=== PATIENT | female | born 1945 | race Caucasian/White ===

== ENCOUNTER 2016-12-25 10:34 | Emergency (ER) | payer OTHER ==
--- NOTE | 2016-12-25 11:06 | UCPHY ---
H & P Time Seen by Provider: 12/25/16 10:47 Patient Type: New HPI/ROS: CHIEF COMPLAINT: Cough HPI: The patient is a 71-year-old female with a history of breast cancer and diabetes. She complains of a cough productive of yellow sputum for approximately the last 2 days. Previous to this, she complained of a runny nose. She denies fever or body aches. She denies hemoptysis. She denies chest pain except when actively coughing. She states she has been under lot of stress recently because her just . REVIEW OF SYSTEMS: Aside from elements discussed in the HPI, a comprehensive 10-point review of systems was reviewed and is negative. PMH: Includes diabetes, breast cancer, no history of heart disease. SOCIAL HISTORY: Retired. . From [place]. FAMILY HISTORY: Reviewed, noncontributory PHYSICAL EXAM: General:Patient is alert, in no acute distress. She is well appearing. ENT:Eyes are normal to inspection. ENT inspection normal. Neck: Normal inspection. Full range of motion. Respiratory:No respiratory distress. Breath sounds normal bilaterally. Cardiovascular: Regular rate and rhythm. Strong peripheral pulses. Normal cap refill. Abdomen:The abdomen is nontender to palpation. There are no peritoneal signs. There are normal bowel sounds. Back: Normal to inspection. No tenderness to palpation. Skin: Normal color. No rash. Warm and dry. Extremities: Normal appearance. Full range of motion. Neuro: Oriented x3. Normal motor function. Normal sensory function. Smoking Status: Former smoker Constitutional: Initial Vital Signs Temperature (C) 36.9 C 12/25/16 10:48 Heart Rate 99 12/25/16 10:48 Respiratory Rate 16 12/25/16 10:48 Blood Pressure 141/92 H 12/25/16 10:48 O2 Sat (%) 92 12/25/16 10:48 O2 Delivery Mode Room Air Allergies/Adverse Reactions: No Known Allergies Allergy (Verified 12/25/16 10:50) Home Medications: Medication Instructions Recorded AZITHROMYCIN [Z-PACK] 250 mg PO DAILY #6 tab 12/25/16 Atacand 12/25/16 Crestor 12/25/16 Synthroid 12/25/16 MDM/Departure - MDM Diagnostics: Chest x-ray viewed and interpreted by myself is negative for pneumonia, showing only bronchitis. ED Course/Re-evaluation: This patient presents with cough in the absence of chest pain, hypoxia, fever. Her x-ray is negative for pneumonia. She has no pleuritic chest pain or hemoptysis to suggest PE. She is an appropriate candidate for outpatient therapy with azithromycin. We discussed strict return precautions. - Depart Disposition: Home, Routine, Self-Care Clinical Impression: Bronchitis Condition: Good Instructions: Acute Bronchitis (ED) Additional Instructions: Follow-up with your primary doctor within 72 hours. Return to the Emergency Department for fever, chest pain, shortness of breath, increasing pain or other worsening of condition. Prescriptions: AZITHROMYCIN [Z-PACK] 250 mg PO DAILY #6 tab Referrals: NONE *PRIMARY CARE P,. [Primary Care Provider] - As per Instructions Jim Corea MD [Medical Doctor] - As per Instructions - PQRS PQRS Measurement: 134: Depression screening and followup, PRIME MD-PHQ2 (12 years and older) Over the last 2 weeks, how often have you been bothered by any of the following problems? 1. Feeling down, depressed, or hopeless? 2. Little interest or pleasure in doing things? Patient answered no to both 1 and 2 130: Documentation of medications. Reviewed all patient medications, doses, route and frequency. 226: Do you smoke? No. 51: 18 years old and older with diagnosis of COPD, spirometry performance. Spirometry not performed; equipment not available. Patient has no history of COPD 52: 18 years old and older with COPD and symptoms of COPD or FEV1<60% predicted prescribed a B Agonist. Spirometry not performed; equipment not available.
[2016-12-25 11:38] VITALS: BP 136/87; PULSE 92; RESP 20; TEMP 98.1; O2SAT 96
== END 2016-12-25 11:36 | disposition home or self-care (01) ==
LOC: CED 10:34
DX: J40 Bronchitis, not specified as acute or chronic (principal); E11.9 Type 2 diabetes mellitus without complications; Z85.3 Personal history of malignant neoplasm of breast; Z87.891 Personal history of nicotine dependence
CPT/HCPCS: 71020; G0463; 99204-PO

== ENCOUNTER → 2017-04-09 | Outpatient (CLI) | payer OTHER | LOC: FIMAGING 07:54 | PROVIDERS: ATTEND Internal Medicine Hematology & Oncology | DX: Z12.31 Encounter for screening mammogram for malignant neoplasm of breast (principal); Z85.3 Personal history of malignant neoplasm of breast | CPT/HCPCS: G0202 ==

== ENCOUNTER → 2018-12-23 | Outpatient (CLI) | payer OTHER | LOC: FIMAGING 08:28 | PROVIDERS: ATTEND Internal Medicine | DX: R06.00 Dyspnea, unspecified (principal); M51.34 Other intervertebral disc degeneration, thoracic region | CPT/HCPCS: 82607-90 ==

== ENCOUNTER → 2019-01-07 | Outpatient (CLI) | payer OTHER | LOC: BHFA 14:45 | PROVIDERS: ATTEND Internal Medicine Cardiovascular Disease | DX: R06.00 Dyspnea, unspecified (principal); R05 Cough ==

== ENCOUNTER → 2019-01-24 | Outpatient (CLI) | payer OTHER | LOC: BHLMT 15:16 | PROVIDERS: ATTEND Internal Medicine Cardiovascular Disease | DX: R06.02 Shortness of breath (principal); R53.83 Other fatigue | CPT/HCPCS: 93306-PO ==

== ENCOUNTER → 2019-02-16 | Outpatient (CLI) | payer OTHER | LOC: BHFA 14:30 | PROVIDERS: ATTEND Internal Medicine Cardiovascular Disease | DX: R07.9 Chest pain, unspecified (principal); R06.02 Shortness of breath ==

== ENCOUNTER → 2019-02-17 | Outpatient (CLI) | payer OTHER | LOC: CIMAGING 14:08 ==